=== PATIENT | female | born 1970 | race American Indian/Alaskan Native ===

== ENCOUNTER 2016-03-26 09:02 | Emergency (ER) | payer SELFPAY | END 2016-03-27 03:13 | disposition left against medical advice (07) | LOC: ED 09:02 | DX: R20.8 Other disturbances of skin sensation (principal); Z53.21 Procedure and treatment not carried out due to patient leaving prior to being seen by health care provider ==

== ENCOUNTER 2019-02-09 10:36 | Outpatient (CLI) | payer BC ==
[2019-02-09] MEDS ORDERED: SINCALIDE 5 MCG VIAL IV ONE ×2 (12:33→12:40)
[2019-02-09] MEDS ORDERED: WATER FOR INJ Sterile (PF) 10 ML ONE (12:33)
--- NOTE | 2019-02-09 13:36 | Nuclear Medicine Report ---
NM hepatobiliary w CCK INDICATION / CLINICAL INFORMATION: R10.13 ABDOMINAL PAIN. TRACER: Technetium 99m Choletec 5.3 mCi IV injection. COMPARISON: No relevant prior imaging study available. FINDINGS: Following injection the above tracer, there was prompt uptake by the liver with rapid excretion into the biliary tree, gallbladder and bowel. Following bladder stimulation, the ejection fraction was calculated at 22%. IMPRESSION: Abnormal ejection fraction of 22%. Gallbladder stimulation reproduced the patient's symptoms. Signer Name: De Chung MD Signed: 02/09/2019 1:32 PM Workstation Name: [email or web address]
== END 2019-02-09 10:37 | disposition home or self-care (01) ==
LOC: NM 10:36
PROVIDERS: ATTEND Student in an Organized Health Care Education/Training Program
DX: R10.13 Epigastric pain (principal); R10.11 Right upper quadrant pain; K59.4 Anal spasm
CPT/HCPCS: 78227; A9537; J2805

== ENCOUNTER 2020-03-19 08:35 | Outpatient (CLI) | payer BC ==
--- NOTE | 2020-03-19 09:43 | Ultrasound Report ---
LIMITED RUQ ABDOMINAL ULTRASOUND INDICATION: RUQ PAIN. COMPARISON: No relevant prior imaging study available. FINDINGS: Pancreas: Visualized portions show no significant abnormality. Abdominal Aorta: No significant abnormality. IVC: No significant abnormality. Liver: The liver measures 15.6 cm in length. No significant abnormality. Normal hepatopedal blood jim w in the main portal vein. Gallbladder: No significant abnormality. Bile ducts: No significant abnormality. Common bile duct measures 2.9 mm. Right kidney: No significant abnormality visualized.. Free fluid: None. Additional Findings: None. IMPRESSION: 1. No acute findings.. Signer Name: Jose Alberto Nguyen MD Signed: 03/19/2020 9:38 AM Workstation Name: [id number]
[2020-03-19] MEDS ORDERED: SINCALIDE 5 MCG VIAL IV ONE ×2 (10:26)
[2020-03-19] MEDS ORDERED: WATER FOR INJ Sterile (PF) 10 ML IV ONE (10:26)
[2020-03-19] MEDS ORDERED: WATER FOR INJ Sterile (PF) 10 ML ONE (10:27)
--- NOTE | 2020-03-19 14:05 | Nuclear Medicine Report ---
NUCLEAR MEDICINE HEPATOBILIARY SCAN INDICATION / CLINICAL INFORMATION: ABDOMINAL PAIN. TECHNIQUE: Radiotracer: Tc-99m mebrofenin (by IV): 5 mCi. Gallbladder Stimulant: Cholecystokinin (in mcg by IV): 2.14 COMPARISON: None available. FINDINGS: HEPATIC ACTIVITY: Normal. BILIARY ACTIVITY: Normal. GALLBLADDER ACTIVITY: Normal SMALL BOWEL ACTIVITY: Normal GALLBLADDER EJECTION FRACTION % (if calculated): 43 - Normal at 30 min with Cholecystokinin: >35% - Normal at 60 min with Ensure/Glucerna: >33% PATIENT SYMPTOM REPRODUCTION: Concordant symptoms.. IMPRESSION: 1. Biliary obstruction: None. 2. Gallbladder ejection fraction: Normal. Signer Name: Jose Alberto Nguyen MD Signed: 03/19/2020 2:00 PM Workstation Name: [email or web address]
== END 2020-03-19 08:36 | disposition home or self-care (01) ==
LOC: US 08:35
PROVIDERS: ATTEND Internal Medicine Gastroenterology
DX: R10.11 Right upper quadrant pain (principal); R10.13 Epigastric pain; K59.4 Anal spasm
CPT/HCPCS: 76705; 78227; A9537; J2805

== ENCOUNTER 2020-12-15 21:26 | Emergency (ER) | payer BC ==
--- NOTE | 2020-12-15 23:16 | Emergency Department Report ---
- General Chief complaint: Wound/Laceration Stated complaint: POSS INFECTION OF TATTOO Time Seen by Provider: 12/15/20 22:28 Source: patient Mode of arrival: Ambulatory Limitations: No Limitations - History of Present Illness Initial comments: A 50-year-old female presents for department status post tattoo to her right foot in the form of a Star which she states became swollen with and tender when she is follow-up with her primary care provider and started on Bactrim. Last night she had sweats so she was worried about having a staph infection wanted the wound to be reevaluated so presents emergency department this evening. She reports no fever at current she reports no numbness or tingling. MD complaint: other (Wound to the right foot) -: Gradual Location: generalized Severity: mild Quality: dull Consistency: constant Improves with: none Worsens with: none Associated symptoms: denies other symptoms Treatments Prior to Arrival: none - Related Data Previous Rx's Medication Instructions Recorded Last Taken Type Amoxicillin/K Clav Tab [Augmentin 1 tab PO Q12HR #14 tab 04/03/15 Unknown Rx 875 mg] Ibuprofen [Motrin] 800 mg PO Q8HR PRN #10 tablet 04/03/15 Unknown Rx Allergies Allergy/AdvReac Type Severity Reaction Status Date / Time erythromycin base Allergy Rash Verified 04/03/15 09:26 prochlorperazine edisylate Allergy Unknown Verified 04/03/15 09:26 [From Compazine] prochlorperazine maleate Allergy Unknown Verified 04/03/15 09:26 [From Compazine] Abscess Boil HPI - HPI Chief Complaint: Wound/Laceration Stated Complaint: POSS INFECTION OF TATTOO Time Seen by Provider: 12/15/20 22:28 Home Medications: Previous Rx's Medication Instructions Recorded Last Taken Type Amoxicillin/K Clav Tab [Augmentin 1 tab PO Q12HR #14 tab 04/03/15 Unknown Rx 875 mg] Ibuprofen [Motrin] 800 mg PO Q8HR PRN #10 tablet 04/03/15 Unknown Rx Allergies/Adverse Reactions: Allergies Allergy/AdvReac Type Severity Reaction Status Date / Time erythromycin base Allergy Rash Verified 04/03/15 09:26 prochlorperazine edisylate Allergy Unknown Verified 04/03/15 09:26 [From Compazine] prochlorperazine maleate Allergy Unknown Verified 04/03/15 09:26 [From Compazine] ED Review of Systems ROS: Stated complaint: POSS INFECTION OF TATTOO Other details as noted in HPI Comment: All other systems reviewed and negative ED Past Medical Hx - Past Medical History Hx Hypertension: Yes Hx Asthma: Yes Additional medical history: elevated cholesterol x1 - Surgical History Past Surgical History?: No Additional Surgical History: tubal ligation 1998 - Social History Smoking Status: Never Smoker Substance Use Type: None - Medications Home Medications: Home Medications Medication Instructions Recorded Confirmed Last Taken Type Amoxicillin/K Clav Tab [Augmentin 1 tab PO Q12HR #14 tab 04/03/15 Unknown Rx 875 mg] Ibuprofen [Motrin] 800 mg PO Q8HR PRN #10 tablet 04/03/15 Unknown Rx ED Physical Exam - General Limitations: No Limitations General appearance: alert, in no apparent distress - Head Head exam: Present: atraumatic, normocephalic - Eye Eye exam: Present: normal appearance - ENT ENT exam: Present: mucous membranes moist - Neck Neck exam: Present: normal inspection - Respiratory Respiratory exam: Present: normal lung sounds bilaterally. Absent: respiratory distress - Cardiovascular Cardiovascular Exam: Present: regular rate, normal rhythm. Absent: systolic murmur, diastolic murmur, rubs, gallop - GI/Abdominal GI/Abdominal exam: Present: soft, normal bowel sounds - Extremities Exam Extremities exam: Present: normal inspection - Back Exam Back exam: Present: normal inspection - Neurological Exam Neurological exam: Present: alert, oriented X3 - Psychiatric Psychiatric exam: Present: normal affect, normal mood - Skin Skin exam: Present: warm, dry, intact, normal color, other (Healing wound to the right lower foot in the form of a scar the entire dermis has been removed/excoriated and scabbing is present. No cellulitis is noted. No significant swelling. Tenderness with palpation is minimal. No lymphangitis noted.). Absent: rash ED Course Vital Signs 12/15/20 12/15/20 21:47 22:29 Temperature 98.2 F Pulse Rate 102 H 78 Respiratory 15 15 Rate Blood Pressure 135/89 Blood Pressure 159/104 [Left] O2 Sat by Pulse 100 98 Oximetry Critical care attestation.: If time is entered above; I have spent that time in minutes in the direct care of this critically ill patient, excluding procedure time. ED Disposition Clinical Impression: Healing wound Disposition: HOME / SELF CARE / HOMELESS Is pt being admited?: No Does the pt Need Aspirin: No Condition: Stable Instructions: Wound Care, Adult Referrals: [facility] [Provider Group] - 3-5 Days
[2020-12-16 01:05] VITALS: BP 153/102
== END 2020-12-16 00:01 | disposition home or self-care (01) ==
LOC: ED 21:26
DX: S90.921A Unspecified superficial injury of right foot, initial encounter (principal); I10 Essential (primary) hypertension; J45.909 Unspecified asthma, uncomplicated; Z88.1 Allergy status to other antibiotic agents; Z88.8 Allergy status to other drugs, medicaments and biological substances; Z79.899 Other long term (current) drug therapy; Z98.51 Tubal ligation status; X58.XXXA Exposure to other specified factors, initial encounter; Y93.89 Activity, other specified; Y92.89 Other specified places as the place of occurrence of the external cause; Y99.8 Other external cause status
CPT/HCPCS: 99282

== ENCOUNTER 2021-08-26 05:40 | Emergency (ER) | payer BC ==
[2021-08-26 05:47] VITALS: BP 153/101
--- NOTE | 2021-08-26 07:45 | Emergency Department Report ---
ED Allergic Reaction HPI - General Chief complaint: Skin Rash Stated complaint: BITES Time Seen by Provider: 08/26/21 07:24 Source: patient Mode of arrival: Ambulatory Limitations: No Limitations - History of Present Illness Initial Comments: 51-year-old black female with a past medical history of hypertension and asthma presents to the emergency department for evaluation of bites to her right neck along with throat swelling and shortness of breath. She states that she was bitten on the right side of her neck 2 days ago and since then she has been having intermittent shortness of breath and it feels like she cannot breathe. She states that she has a history of allergic reactions to insect bites but has never had anything feel this bad. She states that along with the shortness of breath she has had some tightness in her chest along with itching and swelling in her throat. She states that she has not taken any medication for her symptoms. MD Complaint: allergic reaction -: Gradual, days(s) (2) Exposure: insect bite Symptoms: rash, itching, difficulty swallowing, difficulty breathing. denies: facial swelling, lip swelling, orolingual swelling, hoarseness, syncopy, dizziness, nausea, vomiting, abdominal pain Severity: moderate Treatment Prior to Arrival: none Previous Allergy History: other (Itching or rashes) - Related Data Previous Rx's Medication Instructions Recorded Last Taken Type Amoxicillin/K Clav Tab [Augmentin 1 tab PO Q12HR #14 tab 04/03/15 Unknown Rx 875 mg] Ibuprofen [Motrin] 800 mg PO Q8HR PRN #10 tablet 04/03/15 Unknown Rx EPINEPHrine [Epipen 2-Marciano] 0.3 mg IJ ONCE PRN #1 pack 08/26/21 Unknown Rx Prednisone [predniSONE 10 mg 10 mg PO .TAPER #1 pack 08/26/21 Unknown Rx (6-Day Pack, 21 Tabs)] hydrOXYzine PAMOATE [Vistaril] 25 mg PO Q6HR PRN #30 capsule 08/26/21 Unknown Rx Allergies Allergy/AdvReac Type Severity Reaction Status Date / Time erythromycin base Allergy Rash Verified 04/03/15 09:26 prochlorperazine edisylate Allergy Unknown Verified 04/03/15 09:26 [From Compazine] prochlorperazine maleate Allergy Unknown Verified 04/03/15 09:26 [From Compazine] ED Review of Systems ROS: Stated complaint: BITES Other details as noted in HPI Comment: All other systems reviewed and negative Constitutional: denies: chills, fever Eyes: denies: vision change ENT: congestion Respiratory: shortness of breath Cardiovascular: chest pain. denies: palpitations, dyspnea on exertion Gastrointestinal: denies: abdominal pain, nausea, vomiting Genitourinary: denies: urgency, dysuria Musculoskeletal: denies: back pain Skin: rash, pruritus. denies: lesions Neurological: denies: headache, weakness Psychiatric: denies: anxiety, depression ED Past Medical Hx - Past Medical History Hx Hypertension: Yes Hx Asthma: Yes Additional medical history: elevated cholesterol x1 - Surgical History Additional Surgical History: tubal ligation 1998 - Social History Smoking Status: Never Smoker Substance Use Type: None - Medications Home Medications: Home Medications Medication Instructions Recorded Confirmed Last Taken Type Amoxicillin/K Clav Tab [Augmentin 1 tab PO Q12HR #14 tab 04/03/15 Unknown Rx 875 mg] Ibuprofen [Motrin] 800 mg PO Q8HR PRN #10 tablet 04/03/15 Unknown Rx EPINEPHrine [Epipen 2-Marciano] 0.3 mg IJ ONCE PRN #1 pack 08/26/21 Unknown Rx Prednisone [predniSONE 10 mg 10 mg PO .TAPER #1 pack 08/26/21 Unknown Rx (6-Day Pack, 21 Tabs)] hydrOXYzine PAMOATE [Vistaril] 25 mg PO Q6HR PRN #30 capsule 08/26/21 Unknown Rx ED Physical Exam - General Limitations: No Limitations General appearance: alert, in no apparent distress - Head Head exam: Present: atraumatic, normocephalic - Eye Eye exam: Present: normal appearance. Absent: conjunctival injection, periorbital swelling, periorbital tenderness - ENT ENT exam: Absent: normal orophraynx (Erythema and edema noted to posterior oropharynx) - Expanded ENT Exam Expanded Mouth exam: Present: normal external inspection Throat exam: Positive: tonsillar erythema, tonsillomegaly. Negative: tonsillar exudate - Neck Neck exam: Present: normal inspection, lymphadenopathy. Absent: tenderness - Respiratory Respiratory exam: Present: normal lung sounds bilaterally. Absent: respiratory distress, wheezes, rales, rhonchi, stridor, chest wall tenderness - Cardiovascular Cardiovascular Exam: Present: regular rate, normal heart sounds - GI/Abdominal GI/Abdominal exam: Present: soft, normal bowel sounds. Absent: distended, tenderness, guarding, rebound, rigid - Extremities Exam Extremities exam: Present: normal inspection, normal capillary refill - Back Exam Back exam: Present: normal inspection. Absent: CVA tenderness (R), CVA tenderness (L) - Neurological Exam Neurological exam: Present: alert, oriented X3, CN II-XII intact, normal gait - Psychiatric Psychiatric exam: Present: normal affect, normal mood - Skin Skin exam: Present: warm, dry, intact, normal color, rash (Right side of neck) ED Course Vital Signs 08/26/21 05:42 Temperature 98.0 F Pulse Rate 92 H Respiratory 18 Rate Blood Pressure 153/101 O2 Sat by Pulse 98 Oximetry ED Medical Decision Making - Medical Decision Making 51-year-old black female with a past medical history of hypertension and asthma presents to the emergency department for evaluation of bites to her right neck along with throat swelling and shortness of breath. She states that she was bitten on the right side of her neck 2 days ago and since then she has been having intermittent shortness of breath and it feels like she cannot breathe. She states that she has a history of allergic reactions to insect bites but has never had anything feel this bad. She states that along with the shortness of breath she has had some tightness in her chest along with itching and swelling in her throat. She states that she has not taken any medication for her symptoms. Patient noted to have edema to posterior oropharynx on exam. Patient was treated with Solu-Medrol 125 mg IM, 25 mg of Benadryl p.o., and Pepcid 40 mg p.o., And her symptoms improved after medications. Patient will be discharged home with 6 prednisone Dosepak along with Vistaril to use as needed for itching. She will also be discharged home with EpiPen and advised to follow-up with [facility] for further evaluation and management. She is advised to return to the emergency department for any concerning symptoms. She verbalizes understanding of and agreement with plan of care. Critical care attestation.: If time is entered above; I have spent that time in minutes in the direct care of this critically ill patient, excluding procedure time. ED Disposition Clinical Impression: Allergic reaction Qualifiers: Encounter type: initial encounter Qualified Code(s): T78.40XA - Allergy, unspecified, initial encounter Disposition: HOME / SELF CARE / HOMELESS Is pt being admited?: No Does the pt Need Aspirin: No Condition: Stable Instructions: How to Use an Auto-Injector Pen, Anaphylactic Reaction, Adult, [id number] Additional Instructions: Take medications as prescribed. Follow-up with [facility] for further evaluation and management. Return to the emergency department for any concerning symptoms. Prescriptions: EPINEPHrine [Epipen 2-Marciano] 0.3 mg IJ ONCE PRN #1 pack PRN Reason: Anaphylaxis Prednisone [predniSONE 10 mg (6-Day Pack, 21 Tabs)] 10 mg PO .TAPER #1 pack hydrOXYzine PAMOATE [Vistaril] 25 mg PO Q6HR PRN #30 capsule PRN Reason: Itching Referrals: SHANIQUA LEYVA MD [Staff Physician] - 3-5 Days FARRAH LUNDY MD [Referring] - 3-5 Days Time of Disposition: 08:29
[2021-08-26] MEDS ORDERED: methylPREDNISolone Sod Succinate 125 MG/2 ML INJ IM ONE (07:47)
[2021-08-26] MEDS ORDERED: FAMOTIDINE 20 MG TAB PO ONE (07:47)
[2021-08-26] MEDS ORDERED: diphenhydrAMINE 25 MG CAP PO ONE (07:47)
== END 2021-08-26 08:45 | disposition home or self-care (01) ==
LOC: ED 05:40
DX: T63.481A Toxic effect of venom of other arthropod, accidental (unintentional), initial encounter (principal); I10 Essential (primary) hypertension; J45.909 Unspecified asthma, uncomplicated; E78.00 Pure hypercholesterolemia, unspecified; Z98.890 Other specified postprocedural states; Z88.1 Allergy status to other antibiotic agents; Z88.6 Allergy status to analgesic agent; Y92.89 Other specified places as the place of occurrence of the external cause
CPT/HCPCS: 96372; 99282; J2930

== ENCOUNTER 2021-09-03 20:43 | Emergency (ER) | payer BC ==
--- NOTE | 2021-09-04 08:04 | Emergency Department Report ---
ED Rash HPI - HPI Chief Complaint: Skin Rash Stated Complaint: RASH Duration: 8 Location: Upper Extremities Suspected Cause: Animal Rash Symptoms: Yes Itching, No Facial Swelling, No Tongue/Oral Swelling, No Breathing Difficulties, No Choking Sensation, No Wheezing/Dyspnea, No Peeling, No Blistering, No Fever, No Lightheaded, No Malaise, No Myalgias Severity: mild Other History: 51-year-old female presented ED complaining of bilateral rash to both arms. Patient states that she was bitten by an unknown object on Thursday and came to the ED was given Medrol Dosepak and Benadryl shot. Patient states that rash did not improve that she went to urgent care center 2 days ago and was given Keflex 500 mg. She states rash has improved. But she is concerned with the redness and the spread of the rash. Patient states denies any itching shortness of breath or fever at present time. No acute distress noted. no ill appearance appearance noted ED Review of Systems ROS: Stated complaint: RASH Other details as noted in HPI Constitutional: denies: chills, fever Eyes: denies: eye pain, eye discharge, vision change ENT: denies: ear pain, throat pain Respiratory: denies: cough, shortness of breath, wheezing Cardiovascular: denies: chest pain, palpitations Endocrine: no symptoms reported Gastrointestinal: denies: abdominal pain, nausea, diarrhea Genitourinary: denies: urgency, dysuria, discharge Musculoskeletal: denies: back pain, joint swelling, arthralgia Skin: rash. denies: lesions Neurological: denies: headache, weakness, paresthesias Psychiatric: denies: anxiety, depression Hematological/Lymphatic: denies: easy bleeding, easy bruising ED Past Medical Hx - Past Medical History Hx Hypertension: Yes Hx Asthma: Yes Additional medical history: elevated cholesterol x1 - Surgical History Additional Surgical History: tubal ligation 1998 - Social History Smoking Status: Never Smoker Substance Use Type: None - Medications Home Medications: Home Medications Medication Instructions Recorded Confirmed Last Taken Type Amoxicillin/K Clav Tab [Augmentin 1 tab PO Q12HR #14 tab 04/03/15 Unknown Rx 875 mg] Ibuprofen [Motrin] 800 mg PO Q8HR PRN #10 tablet 04/03/15 Unknown Rx EPINEPHrine [Epipen 2-Marciano] 0.3 mg IJ ONCE PRN #1 pack 08/26/21 Unknown Rx Prednisone [predniSONE 10 mg 10 mg PO .TAPER #1 pack 08/26/21 Unknown Rx (6-Day Pack, 21 Tabs)] hydrOXYzine PAMOATE [Vistaril] 25 mg PO Q6HR PRN #30 capsule 08/26/21 Unknown Rx Fluconazole (Nf) [Diflucan TAB] 150 mg PO ONCE 2 Days #2 tablet 09/04/21 Unknown Rx Sulfamethoxazole/Trimethoprim 1 each PO BID 10 Days #20 tab 09/04/21 Unknown Rx [Bactrim DS TAB] predniSONE [Deltasone] 50 mg PO QDAY 3 Days #3 tab 09/04/21 Unknown Rx Rash Exam - Exam General: Vital signs noted. No distress. Alert and acting appropriately. HEENT: No Periorbital Edema, No Conjuctival Injection, No Chemosis, No Perioral Edema, No Tongue Edema, No Uvular Edema, No Compromised Airway, No Drooling Lungs: Yes Good Air Exchange (Normal Breath Sounds), No Wheezes, No Ronchi, No Stridor, No Cough, No Labored Respirations, No Retractions, No Use of Accessory Muscles, No Other Abnormal Lung Sounds Heart: Yes Regular, No Murmur Skin: Yes Urticarial Rash, No Maculopapular Rash, No Morbilliform rash, No Bulla(e), No Excoriations, No Weeping, No Tenderness, No Erythema, No Edema, No Encrustations, No Other Other: Positive: Abdomen Normal, Neurologic Normal, Musculoskeletal Normal ED Course Vital Signs 09/03/21 21:10 Temperature 98.9 F Pulse Rate 110 H Respiratory 18 Rate Blood Pressure 162/100 O2 Sat by Pulse 99 Oximetry ED Medical Decision Making - Medical Decision Making 51-year-old female presented ED complaining of bilateral rash to both arms. Patient states that she was bitten by an unknown object on Thursday and came to the ED was given Medrol Dosepak and Benadryl shot. Patient states that rash did not improve that she went to urgent care center 2 days ago and was given Keflex 500 mg. She states rash has improved. But she is concerned with the redness and the spread of the rash. Patient states denies any itching shortness of breath or fever at present time. No acute distress noted. no ill appearance appearance . Physical examination patient has erythema rash with possible pocket noted to the bilateral arm. Rechecked the patient is resting quietly quietly and comfortable and feeling better. I discussed the results of diagnostic study, my clinical impression and the plan for further treatment with the patient. Patient agrees with plan and discharge at this present time. All question addressed. I have given the patient instruction regarding a diagnosis ,expectation ,follow- up and return precaution. I explained to the patient that emergent condition may arise and to return to the ED for new worsen and any new persisting condition. I have explained the importance of following up with the primary care physician or referral physician listed below has instructed. The patient verbalized understanding of discharge instruction. Critical care attestation.: If time is entered above; I have spent that time in minutes in the direct care of this critically ill patient, excluding procedure time. ED Disposition Clinical Impression: Cellulitis Qualifiers: Site of cellulitis: extremity Site of cellulitis of extremity: upper extremity Laterality: unspecified laterality Qualified Code(s): L03.119 - Cellulitis of unspecified part of limb Disposition: 01 HOME / SELF CARE / HOMELESS Is pt being admited?: No Does the pt Need Aspirin: No Condition: Stable Instructions: Cellulitis, Adult Additional Instructions: Take medication as prescribed Return to the ED for any worsening symptom Prescriptions: Sulfamethoxazole/Trimethoprim [Bactrim DS TAB] 1 each PO BID 10 Days #20 tab predniSONE [Deltasone] 50 mg PO QDAY 3 Days #3 tab Fluconazole (Nf) [Diflucan TAB] 150 mg PO ONCE 2 Days #2 tablet Referrals: [facility] [Provider Group] - 3-5 Days Forms: Work/School Release Form(ED) Time of Disposition: 08:07
[2021-09-04 08:14] VITALS: BP 135/89
== END 2021-09-04 08:13 | disposition home or self-care (01) ==
LOC: ED 20:43
DX: L03.90 Cellulitis, unspecified (principal); I10 Essential (primary) hypertension; J45.909 Unspecified asthma, uncomplicated
CPT/HCPCS: 99282

== ENCOUNTER 2021-11-01 10:12 | Outpatient (CLI) | payer BC ==
--- NOTE | 2021-11-01 15:55 | Ultrasound Report ---
BILATERAL DIGITAL DIAGNOSTIC MAMMOGRAM , 11/01/2021 RIGHT LIMITED BREAST ULTRASOUND CLINICAL INFORMATION / INDICATION: 51-year-old female experiencing right breast pain, mostly in the u pper outer quadrant. Additionally, the patient's physician palpates a lump in the lower inner quadran t of the right breast. N63.14 TECHNIQUE: Digital bilateral mammographic imaging was performed. Limited ultrasound was performed. COMPARISON: Prior mammogram 12/28/2020, 12/28/2019 FINDINGS: Breast Density: There are scattered areas of fibroglandular density. MAMMOGRAPHIC FINDINGS: No dominant mass, suspicious calcifications, or architectural distortion in ei ther breast. Overall, the appearance of the mammogram is stable. There is no mammographic correlate f or palpable lump or pain in the right breast. ULTRASOUND FINDINGS: Targeted ultrasound evaluation was performed of the area of interest. Sonographic evaluation of the lower inner quadrant of the right breast demonstrates a 4 mm cyst at 5: 00. This is an incidental finding as it would be too small to palpate. No other significant finding. The upper outer quadrant of the right breast was also evaluated and without discrete abnormality. No sonographic correlate for area of pain or questionable second area of palpable lump by the patient's physician (according to the patient). IMPRESSION: No mammographic or sonographic evidence of malignancy. Clinical correlation recommended f or right breast pain and palpable lump. Follow up recommendation: Routine yearly screening mammogram. BI-RADS Category 2: BENIGN. A "normal" or negative report should not discourage follow up or biopsy of a clinically significant f inding. A written summary of these findings will be mailed to the patient. The patient will be entered into a mammography reporting system which will generate a reminder letter for the patient's next appointmen t at the appropriate interval. According to the [employer] [place] [employer], yearly mammograms are recommended starting at age 40 and continuing as long as a woman is in good health. Breast MRI is recommended for women with an sunshine roximately 20-25% or greater lifetime risk of breast cancer, including women with a strong family his tory of breast or ovarian cancer and women who have been treated for Hodgkin's disease. Signer Name: Belgica Ferguson MD Signed: 11/01/2021 3:51 PM Workstation Name: [email or web address]
== END 2021-11-01 10:13 | disposition home or self-care (01) ==
LOC: MAMMO 10:12
PROVIDERS: ATTEND Obstetrics & Gynecology
DX: N60.01 Solitary cyst of right breast (principal); N63.14 Unspecified lump in the right breast, lower inner quadrant
CPT/HCPCS: 77066